=== PATIENT | male | born 1970 | race Caucasian/White ===

== ENCOUNTER 2023-01-11 11:41 | Outpatient (REF) | payer MEDICARE, MEDICAID, SELFPAY ==
--- NOTE | ~2023-01-11 | US_ITS ---
EXAMINATION: US SCROTUM CLINICAL INFORMATION: Swelling. COMPARISON: None available. TECHNIQUE: A sonogram of the scrotum was performed assessing moreno-scale appearance and color Doppler flow. Spectral Doppler analysis of the arterial and venous flow were performed in the testes bilaterally. FINDINGS: There is scrotal skin thickening and hyperemia. RIGHT: Right testicle measures 3.9 x 2.0 x 2.4 cm, volume 9.8 mL. Few testicular microlithiasis. No testicular mass. Spectral Doppler analysis of the arterial and venous flow is mildly increased in the right testis and epididymis with homogeneous grayscale echotexture.. Right epididymal head is normal in size. 5 mm epididymal head cyst. No right hydrocele or varicocele is seen. Right epididymal Doppler flow is normal. LEFT: Left testicle measures 3.9 x 2.2 x 2.9 cm, volume 13.0 mL. No testicular microliths. No testicular mass. Spectral Doppler analysis of the arterial and venous flow is normal in the left testis. Left epididymal head is normal in size. No left varicocele is seen. Trace physiologic volume scrotal fluid. No khushi hydrocele Left epididymal Doppler flow is normal. US/US scrotum IMPRESSION: 1. The right epididymis and testicle demonstrate mildly increased vascularity, recommend correlation with clinical symptoms of epididymitis orchitis. There is scrotal skin thickening and hyperemia which could be seen in the setting of cellulitis. 2. 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 No intratesticular mass or other worrisome findings.
== END 2023-01-11 11:42 | disposition home or self-care (01) ==
LOC: HO.US 11:41
PROVIDERS: PCP Student in an Organized Health Care Education/Training Program; Visit Provider Student in an Organized Health Care Education/Training Program
DX: N50.89 Other specified disorders of the male genital organs (principal)
CPT/HCPCS: 76870

== ENCOUNTER 2025-06-24 11:22 | Outpatient (REF) | payer MEDICARE, MEDICAID, SELFPAY ==
[2025-06-24 14:53] LABS: MANUAL DIFF FLAG NO
[2025-06-24 14:57] LABS: Hematocrit 42.7 % (42.0-52.0); Hemoglobin 13.8 g/dl (14.0-18.0); Imm Gran Abs Auto 0.02 X10*3/uL (0.00-0.03); Imm Gran Pct Auto 0.4 % (0.0-0.4); Lymphocytes Absolute Auto 1.6 X10*3/uL (1.2-4.9); Mean Corpuscular HGB Conc 32.3 g/dl (31.0-36.0); Mean Corpuscular Hemoglobin 27.8 pg (27.0-33.0); Mean Corpuscular Volume 86.1 fL (80.0-98.0); NRBC Abs Auto 0.000 X10*3/uL (0.0-0.012); NRBC Pct Auto 0.0 /100WBC (0.0-0.2); Platelet Count 175 X10*3/uL (160-400); Red Blood Count 4.96 X10*6/uL (4.60-5.80); White Blood Count 4.8 X10*3/uL (4.8-10.8)
[2025-06-24 15:19] LABS: Alanine Aminotransferase 20 U/L (0-40); Albumin Level 4.5 g/dL (3.5-5.0); Alkaline Phosphatase 60 U/L (39-117); Anion Gap 11 (12-20); Aspartate Amino Transferase 22 U/L (5-37); Blood Urea Nitrogen 17 mg/dL (9-16); Calcium 9.6 mg/dL (8.4-10.2); Carbon Dioxide 25 mmol/L (22-29); Chloride 115 mmol/L (96-108); Estimated Glomerular Filt Rate > 60; Potassium 5.0 mmol/L (3.3-5.1); Sodium 146 mmol/L (135-145); Total Protein 7.4 g/dL (6.5-8.0)
== END 2025-06-24 11:23 | disposition home or self-care (01) ==
LOC: HO.CHCLDS 11:22
PROVIDERS: Visit Provider Internal Medicine
DX: F73 Profound intellectual disabilities (principal); L20.9 Atopic dermatitis, unspecified; F32.A Depression, unspecified
CPT/HCPCS: 36415; 80053; 84443; 85025; 86481